=== PATIENT | male | born 1940 | race Caucasian/White ===

== ENCOUNTER 2021-10-13 06:42 | Inpatient (IN) ==
[2021-10-13] MEDS ORDERED: Senna TAB 8.6 mg TAB PO PRN (11:45)
[2021-10-13] MEDS ORDERED: Magnesium Hydroxide LIQ 30 ML UDC PO PRN (11:45)
[2021-10-13] MEDS ORDERED: Albuterol HFA INHALER 8 gm MDI INH PRN (12:05)
[2021-10-13] MEDS: Mometasone/Formoter 200/5 MDI INH SCH (19:38)
[2021-10-13 20:46] LABS: Urine Appearance Cloudy; Urine Bilirubin Negative (Negative); Urine Blood 2+ (Negative); Urine Color Yellow; Urine Glucose Negative (Negative); Urine Ketones Negative (Negative); Urine Nitrite Negative (Negative); Urine Protein 1+(30 mg/dL) (Negative); Urine Specific Gravity 1.021 (1.002-1.030); Urine Urobilinogen Negative (Negative)
[2021-10-13 20:51] LABS: Urine Bacteria 1+ (Absent); Urine Red Blood Cell 3+(>10/hpf) (Absent); Urine Squamous Epithelial Cell Present (Absent); Urine White Blood Cell 3+(>20/hpf) (Absent); Urine Yeast Present (Absent)
[2021-10-14] MEDS: Mometasone/Formoter 200/5 MDI INH SCH ×2 (05:44→19:07)
[2021-10-14 06:47] LABS: ABS Lymphocytes 1.7 10^3/ul (1.0-4.8); ABS Monocytes 0.4 10^3/ul (0-0.8); ABS Neutrophils 7.9 10^3/ul (1.5-7.7); Eosinophil % 0.1 %; Hematocrit 24 % (42-52); Hemoglobin 8.2 g/dL (14.0-18.0); Lymphocyte % 16.7 %; Mean Corpuscular HGB Conc 34 g/dL (31-36); Mean Corpuscular Hemoglobin 34 pg (27-31); Mean Corpuscular Volume 102 fL (80-94); Mean Platelet Volume 8.4 fL (7.4-10.4); Platelet Count 247 10^3/uL (150-450); Red Cell Distribution Width 13 % (10-15)
[2021-10-14 07:20] LABS: Albumin 2.7 g/dL (3.2-5.2); Albumin/Globulin Ratio 1.5 (1-3); Globulin 1.8 g/dL (2-4); Total Bilirubin 0.3 mg/dL (0.2-1.0); Total Protein 4.5 g/dL (6.4-8.9); eGFR CKD-EPI 86.9 (>60)
[2021-10-14] MEDS: oxyCODONE/Acetamin 5/325 mg TAB PO PRN (19:06)
[2021-10-15] MEDS: Mometasone/Formoter 200/5 MDI INH SCH ×2 (08:39→20:19)
[2021-10-15] MEDS: oxyCODONE/Acetamin 5/325 mg TAB PO PRN ×2 (08:47→20:18)
[2021-10-16] MEDS: Mometasone/Formoter 200/5 MDI INH SCH ×2 (07:19→20:47)
[2021-10-16] MEDS: oxyCODONE/Acetamin 5/325 mg TAB PO PRN ×2 (07:24→17:52)
[2021-10-17] MEDS: Mometasone/Formoter 200/5 MDI INH SCH ×2 (08:41→18:09)
[2021-10-17] MEDS: oxyCODONE/Acetamin 5/325 mg TAB PO PRN ×2 (08:43→18:13)
[2021-10-18] MEDS: oxyCODONE/Acetamin 5/325 mg TAB PO PRN ×2 (08:58→17:07)
[2021-10-18] MEDS: Mometasone/Formoter 200/5 MDI INH SCH ×2 (08:59→19:40)
[2021-10-19] MEDS: Mometasone/Formoter 200/5 MDI INH SCH ×2 (09:09→19:36)
[2021-10-19] MEDS: oxyCODONE/Acetamin 5/325 mg TAB PO PRN (16:26)
[2021-10-20] MEDS: Mometasone/Formoter 200/5 MDI INH SCH ×2 (08:44→18:54)
[2021-10-20] MEDS: oxyCODONE/Acetamin 5/325 mg TAB PO PRN (16:40)
[2021-10-21 06:51] LABS: ABS Eosinophils 0.3 10^3/ul (0-0.6); ABS Lymphocytes 2.9 10^3/ul (1.0-4.8); ABS Monocytes 0.7 10^3/ul (0-0.8); ABS Neutrophils 8.7 10^3/ul (1.5-7.7); Eosinophil % 2.3 %; Hematocrit 24 % (42-52); Mean Corpuscular HGB Conc 33 g/dL (31-36); Mean Corpuscular Hemoglobin 34 pg (27-31); Mean Corpuscular Volume 101 fL (80-94); Mean Platelet Volume 7.7 fL (7.4-10.4); Platelet Count 224 10^3/uL (150-450); Red Blood Count 2.39 10^6 /uL (4.18-5.48); Red Cell Distribution Width 14 % (10-15); White Blood Count 12.7 10^3/uL (3.5-10.8)
[2021-10-21 07:13] LABS: Albumin 2.8 g/dL (3.2-5.2); Albumin/Globulin Ratio 1.9 (1-3); Globulin 1.5 g/dL (2-4); Potassium 3.9 mmol/L (3.5-5.0); Total Bilirubin 0.5 mg/dL (0.2-1.0); Total Protein 4.3 g/dL (6.4-8.9); eGFR CKD-EPI 88.8 (>60)
[2021-10-21] MEDS: Mometasone/Formoter 200/5 MDI INH SCH ×2 (09:38→19:17)
[2021-10-21] MEDS: oxyCODONE/Acetamin 5/325 mg TAB PO PRN ×2 (09:56→19:18)
[2021-10-21 20:19] LABS: Urine Appearance Cloudy; Urine Bilirubin Negative (Negative); Urine Blood Negative (Negative); Urine Color Yellow; Urine Glucose Negative (Negative); Urine Ketones Trace (Negative); Urine Nitrite Negative (Negative); Urine Protein Negative (Negative); Urine Specific Gravity 1.023 (1.002-1.030); Urine Urobilinogen Negative (Negative)
[2021-10-21 20:22] LABS: Urine Bacteria 1+ (Absent); Urine Red Blood Cell 1+(3-5/hpf) (Absent); Urine Squamous Epithelial Cell Present (Absent); Urine White Blood Cell 3+(>20/hpf) (Absent)
[2021-10-22 05:53] LABS: ABS Eosinophils 0.3 10^3/ul (0-0.6); ABS Lymphocytes 3.4 10^3/ul (1.0-4.8); ABS Monocytes 0.6 10^3/ul (0-0.8); ABS Neutrophils 5.7 10^3/ul (1.5-7.7); Eosinophil % 2.8 %; Hematocrit 23 % (42-52); Hemoglobin 7.7 g/dL (14.0-18.0); Lymphocyte % 33.9 %; Mean Corpuscular HGB Conc 34 g/dL (31-36); Mean Corpuscular Hemoglobin 34 pg (27-31); Mean Corpuscular Volume 101 fL (80-94); Mean Platelet Volume 7.9 fL (7.4-10.4); Platelet Count 199 10^3/uL (150-450); Red Blood Count 2.25 10^6 /uL (4.18-5.48); Red Cell Distribution Width 13 % (10-15)
[2021-10-22] MEDS: Mometasone/Formoter 200/5 MDI INH SCH ×2 (08:15→20:18)
[2021-10-22 09:36] LABS: Folate 16.51 ng/mL (5.90-24.80)
[2021-10-22 10:40] LABS: % Iron Saturation 16 % (15-55); Iron 32 ug/dL (50-212); Total Iron Binding Capacity 200 mcg/dL (250-450); Transferrin 143 mg/dL (203-362); Unsaturated Iron Binding 168 ug/dL
[2021-10-22 11:06] LABS: Folate > 20.00 ng/mL (5.90-24.80)
[2021-10-22] MEDS: oxyCODONE/Acetamin 5/325 mg TAB PO PRN (19:32)
[2021-10-23] MEDS: Mometasone/Formoter 200/5 MDI INH SCH ×2 (08:01→18:58)
[2021-10-23] MEDS: oxyCODONE/Acetamin 5/325 mg TAB PO PRN (16:59)
[2021-10-24 06:32] LABS: Hematocrit 21 % (42-52); Hemoglobin 7.2 g/dL (14.0-18.0)
[2021-10-24] MEDS: Mometasone/Formoter 200/5 MDI INH SCH ×2 (08:35→18:31)
[2021-10-24 15:01] LABS: Vitamin B12 708 pg/mL (180-914)
[2021-10-24] MEDS: oxyCODONE/Acetamin 5/325 mg TAB PO PRN (18:32)
[2021-10-25 05:22] LABS: ABS Eosinophils 0.2 10^3/ul (0-0.6); ABS Lymphocytes 2.7 10^3/ul (1.0-4.8); ABS Monocytes 0.6 10^3/ul (0-0.8); ABS Neutrophils 6.1 10^3/ul (1.5-7.7); Eosinophil % 2.4 %; Hematocrit 22 % (42-52); Hemoglobin 7.2 g/dL (14.0-18.0); Lymphocyte % 27.8 %; Mean Corpuscular HGB Conc 33 g/dL (31-36); Mean Corpuscular Hemoglobin 33 pg (27-31); Mean Corpuscular Volume 101 fL (80-94); Mean Platelet Volume 7.8 fL (7.4-10.4); Platelet Count 185 10^3/uL (150-450); Red Blood Count 2.18 10^6 /uL (4.18-5.48); Red Cell Distribution Width 13 % (10-15); White Blood Count 9.6 10^3/uL (3.5-10.8)
[2021-10-25] MEDS: Mometasone/Formoter 200/5 MDI INH SCH ×2 (09:10→18:14)
[2021-10-25] MEDS: oxyCODONE/Acetamin 5/325 mg TAB PO PRN (18:14)
[2021-10-26] MEDS: Mometasone/Formoter 200/5 MDI INH SCH ×2 (07:39→18:31)
[2021-10-26] MEDS: oxyCODONE/Acetamin 5/325 mg TAB PO PRN (16:47)
[2021-10-27 05:50] LABS: ABS Eosinophils 0.2 10^3/ul (0-0.6); ABS Lymphocytes 2.1 10^3/ul (1.0-4.8); ABS Monocytes 0.4 10^3/ul (0-0.8); ABS Neutrophils 4.9 10^3/ul (1.5-7.7); Hematocrit 21 % (42-52); Hemoglobin 7.3 g/dL (14.0-18.0); Lymphocyte % 27.3 %; Mean Corpuscular HGB Conc 35 g/dL (31-36); Mean Corpuscular Hemoglobin 35 pg (27-31); Mean Corpuscular Volume 100 fL (80-94); Mean Platelet Volume 7.6 fL (7.4-10.4); Platelet Count 189 10^3/uL (150-450); Red Cell Distribution Width 13 % (10-15); White Blood Count 7.7 10^3/uL (3.5-10.8)
[2021-10-27] MEDS: Mometasone/Formoter 200/5 MDI INH SCH ×2 (08:41→17:57)
[2021-10-27 13:02] LABS: Urine Appearance Cloudy; Urine Bilirubin Negative (Negative); Urine Blood Negative (Negative); Urine Color Yellow; Urine Glucose Negative (Negative); Urine Ketones Negative (Negative); Urine Nitrite Negative (Negative); Urine Protein Negative (Negative); Urine Specific Gravity 1.014 (1.002-1.030); Urine Urobilinogen Negative (Negative)
[2021-10-27 13:16] LABS: Urine Bacteria Absent (Absent); Urine Red Blood Cell Trace(0-2/hpf) (Absent); Urine Squamous Epithelial Cell Present (Absent); Urine White Blood Cell 2+(11-20/hpf) (Absent)
[2021-10-27] MEDS: oxyCODONE/Acetamin 5/325 mg TAB PO PRN (17:58)
[2021-10-27] MEDS: Sulfamethox/Trimethoprim DS TAB 800/160 mg PO SCH (20:30)
[2021-10-28 05:13] LABS: ABS Eosinophils 0.3 10^3/ul (0-0.6); ABS Lymphocytes 2.1 10^3/ul (1.0-4.8); ABS Monocytes 0.4 10^3/ul (0-0.8); ABS Neutrophils 4.5 10^3/ul (1.5-7.7); Eosinophil % 4.2 %; Hematocrit 23 % (42-52); Hemoglobin 7.6 g/dL (14.0-18.0); Lymphocyte % 28.6 %; Mean Corpuscular HGB Conc 34 g/dL (31-36); Mean Corpuscular Hemoglobin 34 pg (27-31); Mean Corpuscular Volume 100 fL (80-94); Mean Platelet Volume 7.6 fL (7.4-10.4); Platelet Count 201 10^3/uL (150-450); Red Blood Count 2.25 10^6 /uL (4.18-5.48); Red Cell Distribution Width 13 % (10-15); White Blood Count 7.3 10^3/uL (3.5-10.8)
[2021-10-28 05:20] VITALS: BP 143/79
[2021-10-28 05:45] LABS: Albumin 2.6 g/dL (3.2-5.2); Albumin/Globulin Ratio 1.4 (1-3); Globulin 1.9 g/dL (2-4); Potassium 3.6 mmol/L (3.5-5.0); Total Bilirubin 0.3 mg/dL (0.2-1.0); Total Protein 4.5 g/dL (6.4-8.9); eGFR CKD-EPI 88.8 (>60)
[2021-10-28] MEDS: Mometasone/Formoter 200/5 MDI INH SCH (11:42)
[2021-10-28] MEDS: Sulfamethox/Trimethoprim DS TAB 800/160 mg PO SCH (11:44)
== END 2021-10-28 15:51 | disposition home health service (06) | DRG 560 ==
LOC: PMRU 11:13
PROVIDERS: ADMIT Physical Medicine & Rehabilitation; ATTEND Physical Medicine & Rehabilitation